=== PATIENT | male | born 1995 | race Hispanic/Latino ===

== ENCOUNTER 2019-02-11 17:28 | Emergency (ER) | payer OTHER ==
[~2019-02-11] VITALS: Ht 160 cm; Wt 62.8 kg
--- NOTE | 2019-02-11 18:59 | REP ---
Left knee and five views History: Pain There is no acute fracture or dislocation. The joint spaces are normal in appearance. Impression: There is no acute fracture or dislocation. Electronically Signed by Gordon Holguin MD 02/11/2019 06:51 P
[2019-02-11 20:02] VITALS: BP 120/65
== END 2019-02-11 20:09 | disposition home or self-care (01) ==
LOC: M ED 17:28
DX: M65.262 Calcific tendinitis, left lower leg (principal); M25.562 Pain in left knee